=== PATIENT | female | born 1990 | race Caucasian/White ===

== ENCOUNTER 2018-08-19 16:40 | Outpatient (CLI) | END 2018-08-19 22:05 | disposition home or self-care (01) ==

== ENCOUNTER 2018-08-26 09:22 | Outpatient (CLI) | END 2018-08-26 11:40 | disposition home or self-care (01) ==

== ENCOUNTER 2018-10-12 13:53 | Outpatient (CLI) | END 2018-10-12 16:00 | disposition home or self-care (01) ==

== ENCOUNTER 2018-10-28 13:22 | Inpatient (IN) | payer OTHER ==
[~2018-10-28] VITALS: Ht 167.6 cm; Wt 92.3 kg
[~2018-10-28 13:22] MED LIST: FERR27TA PO; PREN1TAB49 PO
[2018-10-28 13:48] VITALS: BP 110/58; PULSE 91; RESP 18
[2018-10-28 13:49] VITALS: Ht 167.6 cm; Wt 92.3 kg
[2018-10-28] MEDS ORDERED: LACTATED RINGER'S 1,000 ML IV PRN (14:39)
[2018-10-28] MEDS ORDERED: LIDOCAINE 1% (MPF) 30 ML INJ INJ PRN (15:00)
[2018-10-28] MEDS ORDERED: METHYLERGONOVINE 0.2 MG INJ IM PRN (15:00)
[2018-10-28] MEDS ORDERED: IBUPROFEN 600 MG TAB PO PRN (15:00)
[2018-10-28] MEDS ORDERED: BUTORPHANOL 2 MG INJ IV PRN (15:00)
[2018-10-28] MEDS ORDERED: BUTORPHANOL 1 MG INJ IV PRN (15:00)
[2018-10-28] MEDS ORDERED: OXYTOCIN 30 UNITS/LR 500 ML IV SCH ×2 (15:00)
[2018-10-28] MEDS ORDERED: CARBOPROST 250 MCG INJ IM PRN (15:00)
[2018-10-28] MEDS ORDERED: MISOPROSTOL 200 MCG TAB PR PRN (15:00)
[2018-10-28] MEDS ORDERED: OXYTOCIN 30 UNITS/LR 500 ML IV PRN (15:00)
[2018-10-28] MEDS: LACTATED RINGER'S 1,000 ML IV SCH ×2 (16:23→19:08)
[2018-10-29] MEDS: LACTATED RINGER'S 1,000 ML IV SCH ×2 (03:05→11:13)
--- NOTE | 2018-10-30 00:49 | HP ---
Date/Time of Note Date/Time of Note DATE: 10/30/18 TIME: 00:45 OB - History Hx of Present Free Text/Dictation Late entry note. Patient seen on 10/28/2018 28-year-old 2 para 1001 with single intrauterine at 38 weeks and 4 days with a ALEXANDRA of 11/07/2018 complaining of painful uterine contractions. She states good movement. She denies nausea, vomiting, shortness of breath, chest pain, headache, visual changes, vaginal bleeding or LOF. Chief Complaint: Uterine contractions Estimated Due Date: Nov 07, 2018 : 2 Para: 1 Spontaneous : 0 Therapeutic : 0 Care: Good Care Ultrasounds: Normal mid trimester US Obstetrical Complications: None Medical Complications: None Past Family/Social History * Past Medical, Surgical, Family and Obstetric Histories reviewed from chart. Blood Type: A+ Rubella: immune RPR/VDRL: Negative GBS Status: Negative HBsAG: Negative OB Admission Exam Vital Signs Vital Signs Vital Signs Date Temp Pulse Resp B/P (MAP) Pulse Ox O2 O2 Flow FiO2 Time Delivery Rate 10/28/18 97.5 91 18 110/58 Room Air 13:48 (75) Physical Exam HEENT: WNL Heart: Rhythm Normal Lungs: Clear Abdomen: WNL Extremities: Normal Reflexes: Normal Cervical Dilatation: 2cm Effacement: 50% Station: -3 Membranes: Intact Heart Rate: 130's Accelerations: Accelerations Present Decelerations: No Decelerations Varibility: Moderate Contractions on Admission: 6-10 Minutes Apart Intensity: Moderate Last 72 hours Lab Results CBC & BMP 10/28/18 14:25 OB Assessment/Plan Other plan: 28-year-old 2 para 1001 at 38 weeks and 4 days with uterine contractions - FHR: No sign of metabolic acidosis- Category I - Continuous EFM, toco - CBC, blood type and screen - Analgesia options with R/B/A discussed in detail with patient - Epidural per patient request - Please see the orders - A+/Rubella: Immune - GBS: negative -Expectant management Admission, procedures, expectations, risks and possible complications have been discussed in detail with the patient. Risk of vaginal delivery including but not limited to bleeding, infection, cervical laceration, placental retention, injury to fetus, blood transfusion, blood transfusion related infection, risk of anesthesia, adhesion, cervical laceration, episiotomy/laceration, possible delivery with risk of bleeding, infection, injury to other organs (bowel, bladder, ureter, vessels, nerves), injury to fetus, blood transfusion, blood transfusion related infection, risk of anesthesia, scar and hernia formation, needs for future , removal of uterus or any other indicated surgery discussed with the patient. She expressed understanding and repeats the risks. All of her questions were answered. She signed the informed consent. PHYSICIAN'S VERIFICATION OF INFORMED CONSENT The patient was counseled regarding the procedure, its indications, risks, potential complications and alternatives and any questions were answered. Consent was obtained. PLANNED PROCEDURE/TREATMENT: Vaginal delivery, episiotomy, repair of laceration possible delivery ROCKY CUEVAS Oct 30, 2018 00:49
--- NOTE | 2018-10-30 00:54 | DS ---
Date/Time of Note Date/Time of Note DATE: 10/30/18 TIME: 00:49 Obstetrical Discharge Record Final Diagnosis Final Diagnosis: Term not delivered Other Final Diagnosis 28-year-old 2 para 1001 with single intrauterine at 38 weeks and 5 days was admitted due to painful uterine contractions. heart rate is category 1. She initially had regular uterine contraction. She was admitted for expectant management and close observation as the gestational age was less than 39 weeks. After admission to labor and delivery gradually contractions space out. The patient felt more comfortable. There was no cervical changes since admission. Ultrasound performed with normal amniotic fluid index and biophysical profile 8 out of 8. Patient desired to discharge home. Sign and s ymptom of labor, preeclampsia, kick count discussed with patient and her partner family. All expressed understanding. All of their questions answered. She discharged home in stable condition with follow-up with her primary OB in 2- 3 days. Condition on Discharge Physical Assessment Voiding: Yes Bowel Movement: Yes Calf Tenderness: No Patient Condition: Stable ROCKY CUEVAS Oct 30, 2018 00:54
== END 2018-10-29 23:00 | disposition home or self-care (01) | DRG 833 ==
LOC: OBT 13:22 → L-D 13:25 → OBT 14:08
PROVIDERS: ADMIT Obstetrics & Gynecology; ATTEND Obstetrics & Gynecology
DX: O62.9 Abnormality of forces of labor, unspecified (principal); Z3A.38 38 weeks gestation of pregnancy
CPT/HCPCS: 76815; 76818; 85025; 85610; 85730; 86592; 86850; 86900; 86901; 87340; G0463; J7120

== ENCOUNTER 2018-11-02 14:58 | Inpatient (IN) | payer OTHER ==
[~2018-11-02] VITALS: Ht 167.6 cm; Wt 91.8 kg
[2018-11-02 15:37] VITALS: Ht 167.6 cm; Wt 91.8 kg
[2018-11-02 15:38] VITALS: BP 106/58
--- NOTE | 2018-11-02 17:02 | HP ---
Date/Time of Note Date/Time of Note DATE: 11/02/18 TIME: 17:00 OB - History Hx of Present Free Text/Dictation 39+wks GA polyhydramnios in labor : 2 Para: 1 Care: Good Care Obstetrical Complications: None Past Family/Social History * Past Medical, Surgical, Family and Obstetric Histories reviewed from chart. OB Admission Exam Vital Signs Vital Signs Vital Signs Date Temp Pulse Resp B/P (MAP) Pulse Ox O2 O2 Flow FiO2 Time Delivery Rate 11/02/18 98.1 106/58 15:38 (74) Physical Exam Abdomen: WNL Extremities: Normal Cervical Dilatation: 1cm Effacement: 75% Station: -1 Membranes: Intact Heart Rate: 140's Accelerations: Accelerations Present Decelerations: Early Decelerations Varibility: Moderate Contractions on Admission: 6-10 Minutes Apart OB Assessment/Plan Reason for admission: observation Other Assessment: PMH Denies PSH denies Allergy Cephalexin Plan: Expectant Management ADOLFO HILLS M.D. Nov 02, 2018 17:01
--- NOTE | 2018-11-02 17:14 | TRIAGE ---
OB Triage Datetime Report Generated by CPN: 11/02/2018 17:13 Datetime: 11/02/2018 15:48 Stage of : OB Triage Assessment Type: Triage Maternal Assessment Level of Consciousness: Fully Conscious DTR's/Clonus: DTRs 2+; No Clonus Headache: Denies Blurred Vision: No Respiratory Effort: Unlabored; Regular Rhythm; Equal Expansion Breath Sounds, Left: Clear and Equal Breath Sounds, Right: Clear and Equal Nausea/Vomiting: Denies RUQ Epigastric Pain: Denies Lower Extremities Edema: None Degree: None Upper Extremities Edema: None Degree: None Facial Edema: None Temperature Route: Oral Fall Risk Assessment History of Falling: (0) No Secondary Diagnosis: (0) No Ambulatory Aid: (0) Bedrest/Nurse Assist IV Therapy: (0) No Gait: (0) Normal/Bedrest/Immobile Mental Status: (0) Oriented to Own Ability Fall Score: 0 Fall Risk Score Definition: No Risk: No action required Monitor Mode: External Monitor Mode: External US Vaginal Exam Dilatation (cms): 1.0 Effacement (%): 60 Station: -2 Exam By: Nora BANGURA Datetime: 11/02/2018 15:45 Time of Arrival: 11/02/2018 14:49 EGA: 39.2 Arrived By: Ambulatory Arrived From: Office Chief Complaint: RO SROM Movement: Present Contractions: Denies/Absent Rupture of Membranes: Unsure Vaginal Bleeding: None Vaginal Discharge: Denies Recent Sexual Intercouse: Denies Abdominal Trauma: Not Applicable Patient Complaints: Other Time Provider Notified: 11/02/2018 17:00 Provider Notified: DR. CUEVAS Initial Plan: V/E ROM+ Datetime: 10/29/2018 23:06 Time of Arrival: 11/02/2018 14:49 EGA: 39.2 Arrived By: Ambulatory Arrived From: Office Chief Complaint: R/O SROM Movement: Present Contractions: Denies/Absent Rupture of Membranes: Denies Vaginal Bleeding: None Vaginal Discharge: Denies Recent Sexual Intercouse: Denies Abdominal Trauma: Not Applicable Patient Complaints: Other Datetime: 10/29/2018 22:48 Labor Evaluation Frequency: OCCASIONAL Monitor Mode: External Quality: Mild Pattern: Normal: <= 5 Contractions in 10 Minutes Resting Tone [place]: Relaxed Heart Rate FHR Baseline Rate: 135 Monitor Mode: External US FHR Baseline Changes: No Baseline Change Variability: Moderate 6-25 bpm Accelerations: 15X15 Decelerations: None Category: Category I Datetime: 10/29/2018 22:00 Labor Evaluation Frequency: OCCASIONAL Monitor Mode: External Duration (sec)2399: 50-60 Quality: Mild Pattern: Normal: <= 5 Contractions in 10 Minutes Resting Tone [place]: Relaxed Heart Rate FHR Baseline Rate: 135 Monitor Mode: External US FHR Baseline Changes: No Baseline Change Variability: Moderate 6-25 bpm Accelerations: 15X15 Decelerations: None Category: Category I Datetime: 10/29/2018 20:58 Labor Evaluation Frequency: OCCASIONAL Monitor Mode: External Quality: Mild Pattern: Normal: <= 5 Contractions in 10 Minutes Resting Tone [place]: Relaxed Heart Rate FHR Baseline Rate: 135 Monitor Mode: External US Datetime: 10/29/2018 20:13 Comments: Maternal movement, monitor loss of contact Datetime: 10/29/2018 20:00 Labor Evaluation Frequency: occasional Monitor Mode: External Duration (sec)2399: 40-60 Quality: Mild Pattern: Normal: <= 5 Contractions in 10 Minutes Resting Tone [place]: Relaxed Contraction Comments: pt states she does not really feel her contractions much anymore Heart Rate FHR Baseline Rate: 125 Monitor Mode: External US Variability: Moderate 6-25 bpm Accelerations: 15X15 Decelerations: None Category: Category I Pain Assessment Pain Scale: 0 Pain Presence: None/Denies Pain Type: N/A Datetime: 10/29/2018 19:45 Vaginal Exam Dilatation (cms): 2.0 Effacement (%): 60 Station: -3 Exam By: OLIVIA RN Datetime: 10/29/2018 19:19 Assessment Type: Ongoing Assessment Maternal Assessment Level of Consciousness: Fully Conscious DTR's/Clonus: DTRs 2+; No Clonus Headache: Denies Blurred Vision: No Respiratory Effort: Unlabored; Regular Rhythm; Equal Expansion Breath Sounds, Left: Clear and Equal Breath Sounds, Right: Clear and Equal Nausea/Vomiting: Denies RUQ Epigastric Pain: Denies Lower Extremities Edema: None Degree: None Upper Extremities Edema: None Degree: None Facial Edema: None Fall Risk Assessment History of Falling: (0) No Secondary Diagnosis: (0) No Ambulatory Aid: (0) Bedrest/Nurse Assist IV Therapy: (20) Yes Gait: (0) Normal/Bedrest/Immobile Mental Status: (0) Oriented to Own Ability Fall Score: 20 Fall Risk Score Definition: No Risk: No action required Datetime: 10/29/2018 19:18 Temperature Route: Oral Pain Assessment Pain Scale: 0 Pain Presence: None/Denies Pain Type: N/A Datetime: 10/29/2018 18:58 Labor Evaluation Frequency: X1 Monitor Mode: External Duration (sec)2399: 60 Quality: Mild Pattern: Normal: <= 5 Contractions in 10 Minutes Resting Tone [place]: Relaxed Heart Rate FHR Baseline Rate: 125 Monitor Mode: External US Variability: Moderate 6-25 bpm Accelerations: 15X15 Decelerations: None Category: Category I Datetime: 10/29/2018 16:01 Labor Evaluation Frequency: X3 Monitor Mode: External Duration (sec)2399: 60-80 Quality: Mild Pattern: Normal: <= 5 Contractions in 10 Minutes Resting Tone [place]: Relaxed Heart Rate FHR Baseline Rate: 135 Variability: Moderate 6-25 bpm Accelerations: Prolonged Decelerations: None Category: Category I Datetime: 10/29/2018 15:00 Labor Evaluation Frequency: x3 Monitor Mode: External Duration (sec)2399: 60-70 Quality: Mild Pattern: Normal: <= 5 Contractions in 10 Minutes Resting Tone [place]: Relaxed Heart Rate FHR Baseline Rate: 135 Variability: Moderate 6-25 bpm Accelerations: 15X15 Decelerations: None Category: Category I Datetime: 10/29/2018 14:09 Vaginal Exam Dilatation (cms): 2.0 Exam By: wliu Datetime: 10/29/2018 11:46 Labor Evaluation Frequency: occ Monitor Mode: External Duration (sec)2399: 60 Quality: Mild Pattern: Normal: <= 5 Contractions in 10 Minutes Resting Tone [place]: Relaxed Heart Rate FHR Baseline Rate: 125 Monitor Mode: External US Variability: Moderate 6-25 bpm Accelerations: 15X15 Decelerations: None Category: Category I Pain Assessment Pain Scale: 7 Pain Presence: Intermittent Pain Type: Contraction Pain Location: Abdomen Pain Goal: 3 Datetime: 10/29/2018 11:38 Vaginal Exam Dilatation (cms): 2.0 Exam By: wliu Datetime: 10/29/2018 10:57 Labor Evaluation Frequency: OCC Monitor Mode: External Duration (sec)2399: 60-80 Quality: Mild Pattern: Normal: <= 5 Contractions in 10 Minutes Resting Tone [place]: Relaxed Heart Rate FHR Baseline Rate: 125 Monitor Mode: External US Variability: Moderate 6-25 bpm Accelerations: 15X15 Decelerations: None Category: Category I Datetime: 10/29/2018 10:01 Labor Evaluation Frequency: 2-10 Monitor Mode: External Duration (sec)2399: 30-80 Quality: Mild Pattern: Normal: <= 5 Contractions in 10 Minutes Resting Tone [place]: Relaxed Heart Rate FHR Baseline Rate: 125 Variability: Moderate 6-25 bpm Accelerations: 15X15 Decelerations: None Category: Category I Datetime: 10/29/2018 07:42 Labor Evaluation Frequency: 4-9 Monitor Mode: External Duration (sec)2399: 50-80 Quality: Mild Pattern: Normal: <= 5 Contractions in 10 Minutes Resting Tone [place]: Relaxed Heart Rate FHR Baseline Rate: 135 Monitor Mode: External US Variability: Moderate 6-25 bpm Accelerations: 15X15 Decelerations: None Category: Category I Pain Assessment Pain Scale: 2 Pain Presence: Intermittent Pain Type: Contraction Pain Location: Abdomen Pain Goal: 3 Datetime: 10/29/2018 07:16 Assessment Type: Ongoing Assessment Maternal Assessment Level of Consciousness: Fully Conscious DTR's/Clonus: DTRs 2+; No Clonus Headache: Denies Blurred Vision: No Respiratory Effort: Unlabored; Regular Rhythm; Equal Expansion Breath Sounds, Left: Clear and Equal Breath Sounds, Right: Clear and Equal Nausea/Vomiting: Denies RUQ Epigastric Pain: Denies Lower Extremities Edema: None Degree: None Upper Extremities Edema: None Degree: None Facial Edema: None Fall Risk Assessment History of Falling: (0) No Secondary Diagnosis: (0) No Ambulatory Aid: (0) Bedrest/Nurse Assist IV Therapy: (20) Yes Gait: (0) Normal/Bedrest/Immobile Mental Status: (0) Oriented to Own Ability Fall Score: 20 Fall Risk Score Definition: No Risk: No action required Datetime: 10/29/2018 06:48 Monitor Mode: External US Datetime: 10/29/2018 06:45 Comments: monitor loss of contact d/t maternal movement, positioning, _ BMI Datetime: 10/29/2018 06:44 Labor Evaluation Frequency: 1.5-8 Monitor Mode: External Duration (sec)2399: 50-90 Quality: Mild Pattern: Normal: <= 5 Contractions in 10 Minutes Resting Tone [place]: Relaxed Heart Rate FHR Baseline Rate: 115 Monitor Mode: External US Variability: Moderate 6-25 bpm Accelerations: 15X15 Decelerations: None Category: Category I Pain Assessment Pain Scale: 5 Pain Presence: Intermittent Pain Type: Contraction Pain Location: Abdomen Pain Relief Measures: Comfort Measures Datetime: 10/29/2018 05:57 Comments: Periods of monitor loss of contact d/t maternal positioning _ BMI Datetime: 10/29/2018 05:44 Labor Evaluation Frequency: 1.5-5 Monitor Mode: External Duration (sec)2399: 40-80 Quality: Mild Pattern: Normal: <= 5 Contractions in 10 Minutes Resting Tone [place]: Relaxed Heart Rate FHR Baseline Rate: 115 Monitor Mode: External US Variability: Moderate 6-25 bpm Accelerations: 15X15 Decelerations: None Category: Category I Pain Assessment Pain Scale: 5 Pain Presence: Intermittent Pain Type: Contraction Pain Location: Abdomen Pain Relief Measures: Comfort Measures Datetime: 10/29/2018 05:23 Comments: MONITOR LOSS OF CONTACT, TRACING MATERNAL HR (CONFIRMED VIA PULSE OX) Datetime: 10/29/2018 04:44 Labor Evaluation Frequency: 2-6 Monitor Mode: External Duration (sec)2399: 50-80 Quality: Mild Pattern: Normal: <= 5 Contractions in 10 Minutes Resting Tone [place]: Relaxed Heart Rate FHR Baseline Rate: 115 Monitor Mode: External US Variability: Moderate 6-25 bpm Accelerations: 15X15 Decelerations: None Category: Category I Pain Assessment Pain Scale: 6 Pain Presence: Intermittent Pain Type: Contraction Pain Location: Abdomen Pain Relief Measures: Comfort Measures Datetime: 10/29/2018 04:12 Monitor Mode: External Monitor Mode: External US Datetime: 10/29/2018 03:44 Labor Evaluation Frequency: 2-5 Monitor Mode: External Duration (sec)2399: 50-90 Quality: Mild Pattern: Normal: <= 5 Contractions in 10 Minutes Resting Tone [place]: Relaxed Heart Rate FHR Baseline Rate: 125 Monitor Mode: External US Variability: Moderate 6-25 bpm Accelerations: 15X15 Decelerations: None Category: Category I Comments: Periods of baseline at 130-135bpm Pain Assessment Pain Scale: 6 Pain Presence: Intermittent Pain Type: Contraction Pain Location: Abdomen Pain Relief Measures: Comfort Measures Datetime: 10/29/2018 03:11 Monitor Mode: External Monitor Mode: External US Datetime: 10/29/2018 02:45 Labor Evaluation Frequency: 1-3.5 Monitor Mode: External Duration (sec)2399: 50-90 Quality: Moderate Pattern: Normal: <= 5 Contractions in 10 Minutes Resting Tone [place]: Relaxed Contraction Comments: periods of tachysystole Heart Rate FHR Baseline Rate: 125 Monitor Mode: External US Variability: Moderate 6-25 bpm Accelerations: 15X15 Decelerations: None Category: Category I Datetime: 10/29/2018 02:13 Monitor Mode: External US Datetime: 10/29/2018 02:01 Monitor Mode: External US Datetime: 10/29/2018 01:45 Labor Evaluation Frequency: 1-4 Monitor Mode: External Duration (sec)2399: 50-90 Quality: Moderate Pattern: Normal: <= 5 Contractions in 10 Minutes Resting Tone [place]: Relaxed Heart Rate FHR Baseline Rate: 125 Monitor Mode: External US Variability: Moderate 6-25 bpm Accelerations: Prolonged Decelerations: None Category: Category I Pain Assessment Pain Scale: 7 Pain Presence: Intermittent Pain Type: Contraction Pain Location: Abdomen Pain Relief Measures: Comfort Measures Datetime: 10/29/2018 00:44 Labor Evaluation Frequency: 1-3 Monitor Mode: External Duration (sec)2399: 40-90 Quality: Moderate Pattern: Normal: <= 5 Contractions in 10 Minutes Resting Tone [place]: Relaxed Heart Rate FHR Baseline Rate: 120 Monitor Mode: External US Variability: Moderate 6-25 bpm Accelerations: 15X15 Decelerations: None Category: Category I Pain Assessment Pain Scale: 7 Pain Presence: Intermittent Pain Type: Contraction Pain Location: Abdomen Pain Relief Measures: Comfort Measures Datetime: 10/29/2018 00:15 Comments: periods of monitor loss of contact d/t maternal movement, positioning, _ BMI Datetime: 10/28/2018 23:44 Temperature Route: Oral Labor Evaluation Frequency: 1-8 Monitor Mode: External Duration (sec)2399: 40-90 Quality: Moderate Pattern: Normal: <= 5 Contractions in 10 Minutes Resting Tone [place]: Relaxed Contraction Comments: some uterine irritability noted Heart Rate FHR Baseline Rate: 125 Monitor Mode: External US Variability: Moderate 6-25 bpm Accelerations: 15X15 Decelerations: None Category: Category I Pain Assessment Pain Scale: 7 Pain Presence: Intermittent Pain Type: Contraction Pain Location: Abdomen Pain Relief Measures: Comfort Measures Datetime: 10/28/2018 23:34 Monitor Mode: External Comments: switched to belly wrap instead of belly bands Datetime: 10/28/2018 22:44 Labor Evaluation Frequency: 1-4 Monitor Mode: External Duration (sec)2399: 40-70 Quality: Moderate Pattern: Normal: <= 5 Contractions in 10 Minutes Resting Tone [place]: Relaxed Contraction Comments: Some uterine irritability noted Heart Rate FHR Baseline Rate: 135 Monitor Mode: External US Variability: Moderate 6-25 bpm Accelerations: 15X15 Decelerations: None Category: Category I Pain Assessment Pain Scale: 7 Pain Presence: Intermittent Pain Type: Contraction Pain Location: Abdomen Pain Relief Measures: Comfort Measures Datetime: 10/28/2018 21:49 Monitor Mode: External Datetime: 10/28/2018 21:47 Vaginal Exam Dilatation (cms): 2.0 Effacement (%): 60 Station: -2 Exam By: olivia rn Membrane Status: Intact Datetime: 10/28/2018 21:44 Labor Evaluation Frequency: Irregular Monitor Mode: External Duration (sec)2399: 40-70 Quality: Mild Pattern: Normal: <= 5 Contractions in 10 Minutes Resting Tone [place]: Relaxed Heart Rate FHR Baseline Rate: 125 Monitor Mode: External US FHR Baseline Changes: No Baseline Change Variability: Moderate 6-25 bpm Accelerations: 15X15 Decelerations: None Category: Category I Pain Assessment Pain Scale: 6 Pain Presence: Intermittent Pain Type: Contraction Pain Location: Abdomen Pain Relief Measures: Comfort Measures Datetime: 10/28/2018 21:00 Labor Evaluation Frequency: irregular Monitor Mode: External Duration (sec)2399: 40-60 Quality: Mild Pattern: Normal: <= 5 Contractions in 10 Minutes Resting Tone [place]: Relaxed Heart Rate FHR Baseline Rate: 125 Monitor Mode: External US Variability: Moderate 6-25 bpm Accelerations: 15X15 Decelerations: None Category: Category I Pain Assessment Pain Scale: 6 Pain Presence: Intermittent Pain Type: Contraction Pain Location: Abdomen Pain Relief Measures: Comfort Measures Datetime: 10/28/2018 20:00 Labor Evaluation Frequency: 1-4 Monitor Mode: External Duration (sec)2399: 40-80 Quality: Moderate Pattern: Normal: <= 5 Contractions in 10 Minutes Resting Tone [place]: Relaxed Heart Rate FHR Baseline Rate: 135 Monitor Mode: External US Variability: Moderate 6-25 bpm Accelerations: 15X15 Decelerations: None Category: Category I Datetime: 10/28/2018 19:37 Assessment Type: Ongoing Assessment Maternal Assessment Level of Consciousness: Fully Conscious DTR's/Clonus: DTRs 2+; No Clonus Headache: Denies Blurred Vision: No Respiratory Effort: Unlabored; Regular Rhythm; Equal Expansion Breath Sounds, Left: Clear and Equal Breath Sounds, Right: Clear and Equal Nausea/Vomiting: Denies RUQ Epigastric Pain: Denies Lower Extremities Edema: None Degree: None Upper Extremities Edema: None Degree: None Facial Edema: None Fall Risk Assessment History of Falling: (0) No Secondary Diagnosis: (0) No Ambulatory Aid: (0) Bedrest/Nurse Assist IV Therapy: (20) Yes Gait: (0) Normal/Bedrest/Immobile Mental Status: (0) Oriented to Own Ability Fall Score: 20 Fall Risk Score Definition: No Risk: No action required Datetime: 10/28/2018 19:36 Stage of : Labor Temperature Route: Oral Pain Assessment Pain Scale: 8 Pain Presence: Intermittent Pain Type: Contraction Pain Location: Abdomen Pain Relief Measures: Comfort Measures Datetime: 10/28/2018 19:00 Labor Evaluation Frequency: 2-5 Monitor Mode: External Duration (sec)2399: 50-90 Quality: Mild Pattern: Normal: <= 5 Contractions in 10 Minutes Resting Tone [place]: Relaxed Heart Rate FHR Baseline Rate: 135 Monitor Mode: External US FHR Baseline Changes: No Baseline Change Variability: Moderate 6-25 bpm Accelerations: 15X15 Decelerations: None Category: Category I Datetime: 10/28/2018 18:00 Labor Evaluation Frequency: 2-3 Monitor Mode: External Duration (sec)2399: 50-80 Quality: Mild Pattern: Normal: <= 5 Contractions in 10 Minutes Resting Tone [place]: Relaxed Heart Rate FHR Baseline Rate: 130 Monitor Mode: External US FHR Baseline Changes: No Baseline Change Variability: Moderate 6-25 bpm Accelerations: 15X15 Decelerations: None Category: Category I Datetime: 10/28/2018 17:00 Labor Evaluation Frequency: 2-4 Monitor Mode: External Duration (sec)2399: 50-80 Quality: Mild Pattern: Normal: <= 5 Contractions in 10 Minutes Resting Tone [place]: Relaxed Heart Rate FHR Baseline Rate: 130 Monitor Mode: External US FHR Baseline Changes: No Baseline Change Variability: Marked >25 bpm Accelerations: 15X15 Decelerations: None Category: Category I Datetime: 10/28/2018 16:00 Labor Evaluation Frequency: 2-4 Monitor Mode: External Duration (sec)2399: 50-70 Quality: Mild Pattern: Normal: <= 5 Contractions in 10 Minutes Resting Tone [place]: Relaxed Heart Rate FHR Baseline Rate: 140 Monitor Mode: External US FHR Baseline Changes: No Baseline Change Variability: Moderate 6-25 bpm Accelerations: 15X15 Decelerations: None Category: Category I Datetime: 10/28/2018 15:00 Labor Evaluation Frequency: 2-5 Labor Evaluation Frequency: 2-5 Monitor Mode: External Monitor Mode: External Duration (sec)2399: 40-80 Duration (sec)2399: 60-80 Quality: Mild Quality: Mild Pattern: Normal: <= 5 Contractions in 10 Minutes Pattern: Normal: <= 5 Contractions in 10 Minutes Resting Tone [place]: Relaxed Resting Tone [place]: Relaxed Heart Rate FHR Baseline Rate: 135 Heart Rate FHR Baseline Rate: 130 Monitor Mode: External US Monitor Mode: External US FHR Baseline Changes: No Baseline Change FHR Baseline Changes: No Baseline Change Variability: Moderate 6-25 bpm Variability: Moderate 6-25 bpm Accelerations: 15X15 Accelerations: 15X15 Decelerations: None Decelerations: None Category: Category I Category: Category I Datetime: 10/28/2018 14:44 Assessment Type: Admission Assessment Vaginal Bleeding: None Maternal Assessment Level of Consciousness: Fully Conscious DTR's/Clonus: DTRs 2+; No Clonus Headache: Denies Blurred Vision: No Respiratory Effort: Unlabored; Regular Rhythm; Equal Expansion Breath Sounds, Left: Clear and Equal Breath Sounds, Right: Clear and Equal Nausea/Vomiting: Denies RUQ Epigastric Pain: Denies Lower Extremities Edema: Bilateral Lower Extremities (Annotations: TRACE) Upper Extremities Edema: Bilateral Upper Extremities (Annotations: TRACE) Facial Edema: None Fall Risk Assessment History of Falling: (0) No Secondary Diagnosis: (0) No Ambulatory Aid: (0) Bedrest/Nurse Assist IV Therapy: (20) Yes (Annotations: RIGHT HAND) Gait: (0) Normal/Bedrest/Immobile Mental Status: (0) Oriented to Own Ability Fall Score: 20 Fall Risk Score Definition: No Risk: No action required Pain Assessment Pain Scale: 8 Pain Presence: Intermittent Pain Type: Contraction Pain Location: Abdomen Membrane Status: Intact Datetime: 10/28/2018 13:53 Vaginal Exam Dilatation (cms): 1.5 Effacement (%): 60 Station: -2 Exam By: Johann SRIVASTAVA Vaginal Bleeding: None Cervix, Consistency: Moderate Cervix, Position: Posterior Presentation 'A': Cephalic Datetime: 10/28/2018 13:46 Stage of : OB Triage Assessment Type: Triage Maternal Assessment Level of Consciousness: Fully Conscious DTR's/Clonus: DTRs 2+; No Clonus Headache: Generalized Blurred Vision: No Respiratory Effort: Unlabored; Regular Rhythm; Equal Expansion Breath Sounds, Left: Clear and Equal Breath Sounds, Right: Clear and Equal Nausea/Vomiting: Denies RUQ Epigastric Pain: Denies Lower Extremities Edema: None Upper Extremities Edema: None Facial Edema: None Temperature Route: Oral Fall Risk Assessment History of Falling: (0) No Secondary Diagnosis: (0) No Ambulatory Aid: (0) Bedrest/Nurse Assist IV Therapy: (0) No Gait: (0) Normal/Bedrest/Immobile Mental Status: (0) Oriented to Own Ability Fall Score: 0 Fall Risk Score Definition: No Risk: No action required Datetime: 10/28/2018 13:43 Stage of : Labor Datetime: 10/28/2018 13:36 Time of Arrival: 10/28/2018 13:15 EGA: 38.4 Arrived By: Ambulatory Arrived From: Home Chief Complaint: abdominal pain; contractions Movement: Present Contractions: Irregular Time Contractions Began: 10/27/2018 21:00 Rupture of Membranes: Denies Vaginal Bleeding: None Vaginal Discharge: Denies Recent Sexual Intercouse: Denies Abdominal Trauma: Not Applicable Patient Complaints: Contractions Datetime: 10/12/2018 15:30 Stage of : OB Triage Maternal Assessment Level of Consciousness: Fully Conscious Labor Evaluation Frequency: NONE Monitor Mode: External Resting Tone [place]: Relaxed Heart Rate FHR Baseline Rate: 125 Monitor Mode: External US Variability: Moderate 6-25 bpm Accelerations: 15X15 Decelerations: None Category: Category I Pain Assessment Pain Scale: 0 Pain Goal: 3 Membrane Status: Intact Vaginal Bleeding: None Datetime: 10/12/2018 14:25 Fall Score: 0 Fall Risk Score Definition: No Risk: No action required Datetime: 10/12/2018 14:24 EGA: 36.2 Time Provider Notified: 10/12/2018 15:37 Datetime: 08/26/2018 09:33 Fall Score: 0 Fall Risk Score Definition: No Risk: No action required Datetime: 08/26/2018 09:31 EGA: 29.4 Datetime: 08/19/2018 17:22 EGA: 28.4 Datetime: 08/19/2018 17:12 Fall Score: 0 Fall Risk Score Definition: No Risk: No action required Datetime: 08/19/2018 17:11 EGA: 28.4
[2018-11-02] MEDS: LACTATED RINGER'S 1,000 ML IV SCH (17:19)
[2018-11-02] MEDS ORDERED: MISOPROSTOL 200 MCG TAB PR PRN (17:30)
[2018-11-02] MEDS ORDERED: METHYLERGONOVINE 0.2 MG INJ IM PRN (17:30)
[2018-11-02] MEDS ORDERED: CARBOPROST 250 MCG INJ IM PRN (17:30)
[2018-11-02] MEDS ORDERED: BUTORPHANOL 2 MG INJ IV PRN (17:30)
[2018-11-02] MEDS ORDERED: OXYTOCIN 30 UNITS/LR 500 ML IV PRN (17:30)
[2018-11-02] MEDS ORDERED: OXYTOCIN 30 UNITS/LR 500 ML IV SCH ×3 (17:30→20:00)
[2018-11-02] MEDS ORDERED: LIDOCAINE 1% (MPF) 30 ML INJ INJ PRN (17:30)
[2018-11-03] MEDS: LACTATED RINGER'S 1,000 ML IV SCH ×4 (00:25→18:57)
--- NOTE | 2018-11-03 23:10 | LDN ---
Date/Time of Note Date/Time of Note DATE: 11/03/18 TIME: 23:07 Delivery Summary 28-year-old with single intrauterine at 39 weeks and 3 days with a ALEXANDRA of 11/07/2018 with polyhydramnios delivered a viable male over median episiotomy. Nose and mouth suctioned. There was a tight nuchal cord which clamped and cut. Rest of body delivered. Baby given to the nurse. Placenta delivered spontaneously and intact with three-vessel cord. Median episiotomy repaired with 2-0 Vicryl. Patient tolerated procedure well. Time of delivery 22:38 Weight 8 pounds - 3635 g 8 at 1 minutes and 9 at 5 minutes EBL 250 mL Weeks of Gestation 39 weeks and 3 days Placenta Delivered: Spontaneously Meconium: none Episiotomy: Yes Anesthesia type: Local Estimated blood loss: 250 Sponge & Needle done & correct: Yes All needle counts correct: Yes Any foreign bodies felt in the: No Infant Delivery Information Sex Sex: male Apgars 1 Minute: 8 5 Minute: 9 10 Minute: 10 Suctioning Nose & mouth suctioned at summer: Yes Umbilical Cord Umbilical cord with: 3 Vessels Cord presentations: nuchal cord Nuchal cord present X: 1 Cord Blood was obtained: Yes Mother & Baby Disposition Disposition Mom & Baby to Maternity; Good: Yes ROCKY CUEVAS Nov 03, 2018 23:10
[2018-11-03] MEDS ORDERED: OXYCODONE/ASPIRIN (4.88/325) TAB PO PRN (23:30)
[2018-11-03] MEDS ORDERED: ZOLPIDEM 5 MG TAB PO PRN (23:30)
[2018-11-03] MEDS ORDERED: OXYTOCIN 30 UNITS/LR 500 ML IV PRN (23:30)
[2018-11-03] MEDS ORDERED: DIBUCAINE 1% 30 GM OINT TOP PRN (23:30)
[2018-11-03] MEDS ORDERED: CARBOPROST 250 MCG INJ IM PRN (23:30)
[2018-11-03] MEDS ORDERED: LANOLIN HPA 1 PKT TOP PRN (23:30)
[2018-11-03] MEDS ORDERED: ONDANSETRON 4 MG INJ IV PRN (23:30)
[2018-11-03] MEDS ORDERED: MISOPROSTOL 200 MCG TAB PR PRN (23:30)
[2018-11-03] MEDS ORDERED: BENZOCAINE 20% 56 ML SPRAY TOP PRN (23:30)
[2018-11-03] MEDS ORDERED: METHYLERGONOVINE 0.2 MG INJ IM PRN (23:30)
[2018-11-03] MEDS ORDERED: WITCH HAZEL/GLYCERIN PAD PR PRN (23:30)
[2018-11-03] MEDS ORDERED: DIPHENHYDRAMINE 50 MG INJ IV PRN (23:30)
[2018-11-03] MEDS ORDERED: ACETAMINOPHEN 325 MG TAB PO PRN (23:30)
[2018-11-03] MEDS ORDERED: SENNA/DOCUSATE NA (8.6MG/50MG) TAB PO PRN (23:30)
[2018-11-04] VITALS (7 sets, daily range): BP systolic 97–119; BP diastolic 52–69; PULSE 66–89; RESP 17–19
[2018-11-04] MEDS: IBUPROFEN 600 MG TAB PO SCH ×4 (00:15→17:48)
[2018-11-04] MEDS: DEXTROSE 5%-LR 1,000 ML IV SCH ×4 (02:00→23:10)
[2018-11-04] MEDS: LACTATED RINGER'S 1,000 ML IV* SCH ×4 (03:21→23:10)
--- NOTE | 2018-11-04 13:14 | PN ---
Date/Time of Note Date/Time of Note DATE: 11/04/18 TIME: 13:12 OB Subjective Subjective Subjective Breast-feeding. Vaginal bleeding decreased. Urinated. Reports last night with initial walking has some lightheadedness that resolved. Today she could be able to use the restroom and walk around without any symptoms. Denies any pain in her legs. Denies shortness of breath or chest pain. OB Objective Objective Objective General appearance: Alert and oriented x4 does not appear to be in any acute distress. Comfortable in bed Abdomen: Soft, fundus firm and palpable below the umbilicus and firm. No fundal tenderness, no abdominal tenderness Breast: No evidence of mastitis or fissure Extremities no calf tenderness, no click no edema no cord palpable Laboratory Tests Test 11/02/18 15:33 11/02/18 17:23 11/03/18 07:27 11/04/18 07:16 Membranes NEGATIVE Rupture White Blood 9.4 10^3/ul 11.3 10^3/ul Count Red Blood Count 3.50 10^6/ul 2.98 10^6/ul Hemoglobin 10.2 g/dl 8.5 g/dl Hematocrit 30.7 % 26.0 % Mean Corpuscular 87.7 fl 87.2 fl Volume Mean Corpuscular 29.1 pg 28.5 pg Hemoglobin Mean Corpuscular 33.2 g/dl 32.7 g/dl Hemoglobin Rianna nt Red Cell 13.2 % 13.3 % Distribution Width Platelet Count 251 10^3/UL 176 10^3/UL Mean Platelet 9.6 fl 9.7 fl Volume Immature 0.300 % 0.400 % Granulocytes % Neutrophils % 74.9 % 77.3 % Lymphocytes % 19.5 % 16.0 % Monocytes % 4.5 % 5.8 % Eosinophils % 0.6 % 0.1 % Basophils % 0.2 % 0.4 % Nucleated Red 0.0 /100WBC 0.0 /100WBC Blood Cells % Immature 0.030 10^3/ul 0.040 10^3/ul Granulocytes # Neutrophils # 7.0 10^3/ul 8.8 10^3/ul Lymphocytes # 1.8 10^3/ul 1.8 10^3/ul Monocytes # 0.4 10^3/ul 0.7 10^3/ul Eosinophils # 0.1 10^3/ul 0.0 10^3/ul Basophils # 0.0 10^3/ul 0.0 10^3/ul Nucleated Red 0.0 10^3/ul 0.0 10^3/ul Blood Cells # Prothrombin Time 12.0 Sec Prothrombin Time 0.9 Ratio INR 0.88 International Normalized Ratio Activated 25.9 Sec Partial Thrombop last Time Rapid Plasma NONREACTIVE Reagin Lab Scanned REFERENCE Report LAB [id number] OB Assessment/Plan Other Assessment: Status post day #1 Anemia, , likely under estimated blood loss. Has been ambulating today without any symptoms. Denies any symptoms. Discussed with the patient regarding cautious about ambulation and using assistant merchandiser if she has any symptoms. Currently vitals are stable and she is asymptomatic. Patient to start taking iron twice a day with a stool softener Routine care And status to home tomorrow SHARDA BAIRES MD Nov 04, 2018 13:14
[2018-11-05] MEDS: IBUPROFEN 600 MG TAB PO SCH ×3 (00:08→12:31)
[2018-11-05 04:00] VITALS: BP 98/53; PULSE 71; RESP 19
[2018-11-05 08:30] VITALS: BP 99/52; PULSE 71; RESP 18
[2018-11-05] MEDS ORDERED: MEASLES,MUMPS,RUBELLA VACCINE INJ SC* ONE (09:00)
[2018-11-05] MEDS ORDERED: DIPHTH/TET/ACEL PERTUSS (ADULT) 0.5 ML VIAL IM* ONE (09:00)
[2018-11-05 16:24] VITALS: BP 113/70; PULSE 78; RESP 16
--- NOTE | 2018-11-05 17:03 | DS ---
Date/Time of Note Date/Time of Note DATE: 11/05/18 TIME: 17:02 Obstetrical Discharge Record Final Diagnosis Final Diagnosis: Term delivered Vaginal Delivery Obstetrical Delivery: Spontaneous, Episiotomy, Repaired Complications Augmentation: No Induction: Yes Rupture of Membranes: No Condition on Discharge Physical Assessment Last Vitals: vss afebrile Voiding: Yes Bowel Movement: No Breast: Soft, non-tender Fundus: Firm Abdomen and Incision: n/a Episiotomy: healing ok Calf Tenderness: No Patient Condition: Stable HAILEY RICH MD Nov 05, 2018 17:03
--- NOTE | 2018-11-05 17:06 | PD.PPDC ---
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
== END 2018-11-05 18:22 | disposition home or self-care (01) | DRG 806 ==
LOC: OBT 14:58 → L-D 14:59 → OBT 17:00 → L-D 17:00 → PP1 11-04 01:15
PROVIDERS: ADMIT Obstetrics & Gynecology; ATTEND Obstetrics & Gynecology
PROC: 10E0XZZ Delivery of Products of Conception, External Approach (ICD-10-PCS; principal; 2018-11-03)
PROC: 0W8NXZZ Division of Female Perineum, External Approach (ICD-10-PCS; 2018-11-03)
DX: O40.3XX0 Polyhydramnios, third trimester, not applicable or unspecified (principal); O69.1XX0 Labor and delivery complicated by cord around neck, with compression, not applicable or unspecified; D62 Acute posthemorrhagic anemia; O90.81 Anemia of the puerperium; O76 Abnormality in fetal heart rate and rhythm complicating labor and delivery; Z37.0 Single live birth; Z3A.39 39 weeks gestation of pregnancy
CPT/HCPCS: 76818; 84112; 85025; 85610; 85730; 86592; 86850; 86900; 86901; 87340; 99464; G0463; J2210; J2590; J7120; J7121